=== PATIENT | female | born 1955 ===

== ENCOUNTER 2018-01-21 09:12 | Day surgery (SDC) | payer BC ==
[~2018-01-21 09:12] MED LIST: Buffered Lidocaine 0.9% SYRIN* 5 ML/SYR SYRINGE INTRADERM ONE
[2018-01-21] MEDS ORDERED: Midazolam* 1 MG/ML 2 ML VIAL (2 MG) ONE ×2 (11:34→11:37)
[2018-01-21 12:00] VITALS: BP 109/65
--- NOTE | 2018-01-21 20:39 | OP ---
DATE OF OPERATION: 01/21/18 [facility] DATE OF : 53 SURGEON: Fausto Berkowitz M.D. PREOPERATIVE DIAGNOSIS: Cataract, right eye. POSTOPERATIVE DIAGNOSIS: Cataract, right eye. OPERATIVE PROCEDURE: Extracapsular cataract extraction with intraocular lens implant, right eye. DESCRIPTION OF PROCEDURE: The patient was brought to the operating room after being given 1/2% Alcaine with epinephrine drops in the preoperative area. The eye was prepped and draped in the usual sterile fashion. Sterile drape and eyelid speculum were placed. Again, topical 1/2% Alcaine with epinephrine was given. A paracentesis incision was made at the 9 o'clock position with the No.75 blade. Clear cornea incision 2.2 x 2.2-mm was created at the 12 o'clock position starting at the anterior limbus using the 2.2-mm keratome. The anterior chamber was irrigated with 0.4 mL of 1% non-preservative intracameral lidocaine and filled with DisCoVisc. A capsulorrhexis was completed using the cystotome and the Utrata forceps. Hydrodissection was performed with balanced salt solution. The lens nucleus was removed with the Phacoemulsification handpiece without incident. Cortex was removed with the irrigation-aspiration handpiece. The capsular bag was re-inflated using DisCoVisc and an SN60WF 10.5 implant was inserted with the shooter. The irrigation-aspiration handpiece was used to remove all residual DisCoVisc. The eye was refilled with balanced salt solution and the wound checked and found to be watertight. Topical Maxitrol drops were given. [id number]/[facility] #: [id number] [facility]
== END 2018-01-21 12:09 | disposition home or self-care (01) ==
LOC: OREAST 09:12
PROVIDERS: ATTEND Specialist
DX: H25.811 Combined forms of age-related cataract, right eye (principal); H40.053 Ocular hypertension, bilateral; J45.30 Mild persistent asthma, uncomplicated; E55.9 Vitamin D deficiency, unspecified
CPT/HCPCS: J2250; V2632

== ENCOUNTER 2018-01-28 07:47 | Day surgery (SDC) | payer BC ==
[~2018-01-28 07:47] MED LIST changes: +Acetaminophen TAB* 325 MG PO PRN; +Cyclopentolate 1% OPTH.SOL* 2 ML BTL ONE; +Ketorolac 0.5% OPHTH (NF) 0.5 % 5 ML BTL ONE; +Lidocaine 1%* 5 ML VIAL ONE; +Lidocaine 2% EPI 1:200000 MPF*10-20 ML VIAL ONE; +Neomycin/Polymy/Dex OPTH.SUSP* MAXITROL 0.1% 5 ML ONE; +Phenylephrine 2.5% OPTH.SOL* 2 ML BTL ONE; +Povidone Iodine 5% OPTH* 30 ML BTL ONE; +Proparacaine 0.5% OPHTH.SOL* 15 ML BTL ONE; +acetaZOLAMIDE TAB* 250 MG ONE
[2018-01-28] MEDS ORDERED: Midazolam* 1 MG/ML 5 ML VIAL (5 MG) ONE (07:58)
[2018-01-28] MEDS ORDERED: fentaNYL* 50 MCG/ML 2 ML VIAL (100 MCG VIAL) ONE (07:58)
[2018-01-28 10:35] VITALS: BP 121/56
--- NOTE | 2018-01-28 11:30 | OP ---
DATE OF OPERATION: 01/28/18 [facility] DATE OF : 53 SURGEON: Fausto Berkowitz MD. PREOPERATIVE DIAGNOSIS: Cataract left eye. POSTOPERATIVE DIAGNOSIS: Cataract left eye. OPERATIVE PROCEDURE: Extracapsular cataract extraction with intraocular lens implant left eye. DESCRIPTION OF PROCEDURE: The patient was brought to the operating room after being given 1/2% Alcaine with epinephrine drops in the preoperative area. The eye was prepped and draped in the usual sterile fashion. Sterile drape and eyelid speculum were placed. Again, topical 1/2% Alcaine with epinephrine was given. A paracentesis incision was made at the 3 o'clock position with the No.75 blade. Clear cornea incision 2.2 x 2.2-mm was created at the 6 o'clock position starting at the anterior limbus using the 2.2-mm keratome. The anterior chamber was irrigated with 0.4 mL of 1% non-preservative intracameral lidocaine and filled with DisCoVisc. A capsulorrhexis was completed using the cystotome and the Utrata forceps. Hydrodissection was performed with balanced salt solution. The lens nucleus was removed with the Phacoemulsification handpiece without incident. Cortex was removed with the irrigation-aspiration handpiece. The capsular bag was re-inflated using DisCoVisc and an SN60WF 13.5 implant was inserted with the shooter. The irrigation-aspiration handpiece was used to remove all residual DisCoVisc. The eye was refilled with balanced salt solution and the wound checked and found to be watertight. Topical Maxitrol drops were given. [id number]/[facility] #: [id number] [facility]
== END 2018-01-28 10:54 | disposition home or self-care (01) ==
LOC: OREAST 07:47
PROVIDERS: ATTEND Specialist
DX: Z00.00 Encounter for general adult medical examination without abnormal findings (principal); H25.812 Combined forms of age-related cataract, left eye; H25.13 Age-related nuclear cataract, bilateral; H40.053 Ocular hypertension, bilateral; Z12.31 Encounter for screening mammogram for malignant neoplasm of breast; J45.30 Mild persistent asthma, uncomplicated; G47.09 Other insomnia; Z96.1 Presence of intraocular lens; Z23 Encounter for immunization
CPT/HCPCS: A9270-GY; J2250; J3010; V2632